=== PATIENT | male | born 1960 ===

== ENCOUNTER 2018-03-19 11:24 | Emergency (ER) | payer OTHER ==
[2018-03-19 11:57] VITALS: BP 167/99
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
== END 2018-03-19 12:18 | disposition home or self-care (01) ==
LOC: UCEAST 11:24
DX: T21.29XA Burn of second degree of other site of trunk, initial encounter (principal); I10 Essential (primary) hypertension; J45.909 Unspecified asthma, uncomplicated; Y63.5 Inappropriate temperature in local application and packing; Y92.9 Unspecified place or not applicable
CPT/HCPCS: 99211; G0463